=== PATIENT | male | born 1970 | race Caucasian/White ===

== ENCOUNTER 2024-12-30 14:10 | Emergency (ER) | payer MEDICAID, SELFPAY ==
[2024-12-30 14:11] VITALS: BP 140/84; PULSE 83; RESP 16; TEMP 36.6; O2SAT 98; BMI 33.7
--- NOTE | 2024-12-30 14:27 | CT_ITS ---
PROCEDURE: SPINE LUMBAR WITHOUT CONTRAST REASON FOR EXAM: Low back pain following a recent fall. Bilateral arm and leg numbness. TECHNIQUE: Lumbar spine CT without contrast. COMPARISON: None. FINDINGS: Vertebrae: Normal lumbar vertebral body heights. No evidence of fracture. Spondylosis. Alignment: No spondylolisthesis. L1-2: Mild degree of disc space narrowing. Anterior spondylosis. No significant stenosis seen. L2-3: Disc space is relatively well-maintained. Minimal anterior spondylosis. No evidence of fracture. No evidence of stenosis. L3-4: The disc space is relatively well maintained. Mild degree of bilateral neural foraminal stenosis due to hypertrophy of the facet joints. L4-5: The disc space is relatively well maintained. Moderate degree of bilateral neural foraminal stenosis due to hypertrophy of the facet joints as well as ligamentum flava. L5-S1: Disc space is relatively well-maintained. No significant abnormality is seen. Sacrum: Visualized upper sacrum and SI joints are unremarkable. Atherosclerotic plaque formation of the abdominal aorta. CT/Spine Lumbar without Contrast IMPRESSION: NO ACUTE LUMBAR FRACTURE. DEGENERATIVE CHANGES. One or more dose reduction techniques were used (e.g., Automated exposure contr ol, adjustment of the mA and/or kV according to patient size, use of iterative reconstruction technique). Reading Location: [facility]
--- NOTE | 2024-12-30 14:27 | CT_ITS ---
PROCEDURE: SPINE CERVICAL WITHOUT CONTRAS REASON FOR EXAM: Neck pain and upper extremity pain secondary to a fall. TECHNIQUE: Cervical spine CT without contrast. COMPARISON: None. FINDINGS: Alignment: Loss of the normal cervical lordosis most likely secondary to muscle spasm. Vertebrae: No acute fracture Soft Tissues: Unremarkable C1-2: Normal alignment. Dens appears intact. C2-3: Unremarkable C3-4: Unremarkable C4-5: Unremarkable C5-6: Unremarkable C6-7: Unremarkable C7-T1: Unremarkable CT/Spine Cervical without Contras IMPRESSION: Loss of the normal cervical lordosis most likely secondary to muscular spasm. No acute abnormality is seen. One or more dose reduction techniques were used (e.g., Automated exposure contr ol, adjustment of the mA and/or kV according to patient size, use of iterative reconstruction technique). Reading Location: [id number]
--- NOTE | 2024-12-30 14:27 | CT_ITS ---
EXAM: CT scan of the head without intravenous contrast administration. TECHNIQUE: Helical imaging of CT head was performed without IV contrast. One or more of the following dose reduction techniques were used: automated exposure control, adjustment of the mA and/or kV according to patient size, use of iterative reconstruction technique. CLINICAL HISTORY: Head injury due to a fall. COMPARISON: None. TECHNIQUE: Helical imaging of CT head was performed without IV contrast. One or more of the following dose reduction techniques were used: automated exposure control, adjustment of the mA and/or kV according to patient size, use of iterative reconstruction technique. FINDINGS: BRAIN PARENCHYMA: No evidence for acute hemorrhage or large territory infarct. EXTRA-AXIAL SPACES: No acute extra-axial fluid collection identified. Basal cisterns are patent. MIDLINE SHIFT: None. VENTRICLES: No evidence of hydrocephalus. SCALP SOFT TISSUES: No significant abnormality. CALVARIUM: No acute process. VISUALIZED PARANASAL SINUSES: No air-fluid levels. MASTOID AIR CELLS: Grossly clear. CT/Brain/Head without Contrast IMPRESSION: No evidence of acute intracranial abnormality. Reading Location: [id number]
--- NOTE | 2024-12-30 14:29 | ED.VIS.FALL ---
HPI HPI - Fall History of Present Illness Chief Complaint: Fall Informant: patient Occured/Mechanism Occurred: Today and Hours Usually ambulates: Without assistance Pain/Injury Pain Location: neck and back Quality of Pain: Sharp Current Severity: Moderate Maximum Severity: Moderate Associated Symptoms Associated Symptoms: Negative for Parasthesias, Weakness, Loss of function, Inability to ambulate or Loss of consciousness Narrative Narrative: 54-year-old male history of falls, degenerative disc disease, hypertension on aspirin but no other anticoagulants. Reportedly fell down 4 steps today. Does not believe he lost consciousness. Unsure if he hit his head. Complaining of low back pain. Was seen today in his neurologist office who called the emergency department and I need to be evaluated due to his low back pain. Patient denies any bowel or bladder incontinence. Prior similar symptoms: Yes Recent Illness/Hospitalization: No PFSH PFSH Allergy/AdvReac Type Severity Reaction Status Date / Time Environmental Allergies: Allergy Mild Other Verified 12/30/24 14:15 Uncoded (dust) metronidazole (From Flagyl) AdvReac Mild Nausea/Vom/ Verified 12/30/24 14:15 Diarrhea sulfamethoxazole (From AdvReac Mild Nausea/Vom/ Verified 12/30/24 14:15 Bactrim) Diarrhea trimethoprim (From Bactrim) AdvReac Mild Nausea/Vom/ Verified 12/30/24 14:15 Diarrhea Social History Smoking Status: Current every day smoker tobacco type: cigarettes ROS ROS ED ROS Narrative Denies recent illness. Complaining of neck and back pain post fall today. Constitutional Constitutional ED: Denies chills or fever(s) Eyes Eyes: Denies blurry vision ENT ENT ED: Denies ear pain Cardiovascular Cardiovascular: Denies chest pain Respiratory/Chest Respiratory/Chest: Denies cough or dyspnea Gastrointestinal Gastrointestinal: Denies abdominal pain Genitourinary Genitourinary ED: Denies dysuria Musculoskeletal Musculoskeletal: Reports back pain and neck pain; Denies arthralgias Integumentary Denies abscess Neurologic Neurologic: Denies headache(s) Psychiatric Psychiatric: Denies anxiety or depression Endocrine Endocrinology: Denies polydipsia Hematologic/Lymphatic Hematologic/Lymphatic: Denies easy bleeding Allergic/Immunologic Allergic/Immunologic ED: Denies mouth swelling EXAM Physical Exam Narrative Exam Narrative: 54-year-old male vital signs are stable afebrile. No acute distress. Pulse ox 90% on room air no signs hypoxia. H EENT exam pupils round reactive light. Moist mucous membranes. Missing dentition its old not new today. No problem opening closing his jaw. No facial or scalp trauma. No hematoma. No lacerations or bruising. Nontender. Neck diffuse C-spine tenderness. Trachea midline. Lungs clear to auscultation bilaterally. Heart regular rhythm rate about 80 no murmur. Chest wall ribs are nontender. Abdomen soft nontender. No bruising. Pelvic girdle intact. Back he has tenderness over his C-spine and lumbar lumbar spine. There is no ecchymosis or bruising or signs of trauma. Thoracic spine posterior ribs are nontender. Pelvic girdle intact. No shortening or rotation either hip. He has no pain over his upper or lower extremities. 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 He can raise his arms above his head. There is no deformity. Lower extremities have normal dorsi plantarflexion. He can flex extend the knees and hips. No deformity or shortening. No rotation. Neurologically is awake and alert no focal motor deficits. Const Vital Signs: 12/30/24 14:11 12/30/24 14:20 Temperature 97.9 F Temperature Source Temporal Pulse Rate 83 Respiratory Rate 16 Respiratory Effort Normal Respiratory Depth Normal Respiratory Pattern Normal Blood Pressure 140/84 H Blood Pressure Mean 102 Pulse Ox 98 Oxygen Delivery Method Room Air Room Air Positive well nourished and well developed; Negative for cachectic, contractures or unkempt General Appearance ED: well developed; Negative for unkempt, cachectic or contractures Nutritional Appearance: Negative for cachectic HEENT Reports normocephalic atraumatic; Negative for trauma, contusion, hematoma or tenderness Eyes PERRL and EOMs intact bilaterally General Eye ED: Negative for pale conjunctiva or scleral icterus Neck full ROM, no lymphadenopathy and supple Neck Narrative: C-spine tenderness. General: tenderness Chest Wall inspection of chest normal and palpation of chest normal Resp normal respiratory effort, no retractions and clear to auscultation bilaterally Auscultation: Negative for rales, rhonchi, wheezes or diminished lung sounds Cardio regular rate, regular rhythm, S1 normal heart sound, S2 normal heart sound and no murmurs Rate: Negative for bradycardia or tachycardic Rhythm: Negative for abnormal rhythm Bruits: Negative for other GI non-tender, non-distended and no masses Palpation: soft; Negative for guarding or rebound tenderness present Back/Spine no CVA tenderness General Back: Negative for CVA tenderness, erythema, ecchymosis, swelling or tenderness Cervical Spine: cervical spine tenderness Lumbar Spine / Lower Back: lumbar spinal tenderness Extremity Extremity Narrative: Nontender. No deformity. Normal range of motion. Neuro oriented x3, CN's II-XII intact bilaterally, moves all extremities, no focal motor deficits and no sensory deficits noted Justin Coma Scale: document GCS findings Spontaneous Obeys Commands Oriented 15 Sensorium / Orientation: alert, oriented to person, oriented to place and oriented to time; Negative for orientation impaired or confused Motor Exam: strength 5/5 throughout Psych mental status grossly normal and thought process normal Appearance: Negative for unkempt Mood & Affect: Negative for depressed, anxious or tearful Skin Lesions: no lesions Rashes: no rashes Trauma: Negative for abrasion or laceration Image ED - Body Diagram Man:  1. Tenderness of the C-spine. 2. Tender to his lumbar spine. MDM MDM MDM Narrative Medical decision making narrative: 54-year-old male reportedly fell down 4-5 steps at home today. Complaining of lower back pain. On exam he is posterior neck and back pain. CT of his head neck and lumbar spine to be obtained. He has no chest or abdominal pain and only needs his images. He has chronic illness Mrs. Plus a history of alcohol use but he denies drinking today or yesterday. Screening labs to be obtained. Patient has frequent falls and has for a year. He has fallen and broken his shoulder, torn his rotator cuff and broken his hip before. States his leg gives out and goes down. That is not new or different. Repeat exam at at around 4 to 6 PM. Patient doing well. We went over his CAT scan and test results. Will be discharged home. Tylenol and Motrin for pain. Follow-up with his primary care physician. Patient ambulated the hallway to go the bathroom prior to discharge without any difficulty. His neurologist had ordered blood test for him to get done and he was hoping we could add it to the blood work today so could be followed up as an outpatient. I will see if that can be done. History & Record Review Discussion w/independent historian: Patient Additional record(s) reviewed:: Prior inpatient record, Prior outpatient record, Prior ED visit and Prior labs Lab Data Attestation: I reviewed the patient's lab results. Lab results narrative: CBC unremarkable. White count of 7. H&H 14 and 42. Platelets 248. Electrolytes show gap 5. Normal BUN of 7 creatinine of 1. Glucose 112. Liver enzymes normal. Alcohol negative. CAT scans of the head, neck and chest showed chronic changes. But no acute abnormalities. No acute fractures. Labs: Laboratory Results - last 24 hr 12/30/24 14:42 WBC 7.3 RBC 4.61 Hgb 14.8 Hct 42.2 MCV 91.5 MCH 32.1 H MCHC 35.1 RDW Std Deviation 46.7 H RDW Coeff of Moreno 14.0 Plt Count 248 MPV 8.9 Immature Gran % (Auto) 0.400 Neut % (Auto) 54.9 Lymph % (Auto) 30.2 [place] % (Auto) 9.2 Eos % (Auto) 4.1 Baso % (Auto) 1.2 H Absolute Neuts (auto) 4.0 Absolute Lymphs (auto) 2.20 Nucleated RBC % 0 Sodium 138 Potassium 4.6 Chloride 105 Carbon Dioxide 28.0 Anion Gap 5 BUN 7 Creatinine 1.03 Estim Creat Clear Calc 95.40 Est GFR (MDRD) Af Amer 97 Est GFR (MDRD) Non-Af 80 BUN/Creatinine Ratio 6.8 L Glucose 112 H Calcium 9.0 Total Bilirubin 0.60 AST 36 ALT 34 Alkaline Phosphatase 69 Total Protein 7.3 Albumin 3.4 Globulin 3.9 Albumin/Globulin Ratio 0.9 Ethyl Alcohol < 3.0 Radiography Diagnostic Testing: Clinical Impression(s) from Imaging Studies Brain CT 12/30/24 14:27 IMPRESSION: No evidence of acute intracranial abnormality. Reading Location: [facility] Cervical Spine CT 12/30/24 14:27 IMPRESSION: Loss of the normal cervical lordosis most likely secondary to muscular spasm. No acute abnormality is seen. One or more dose reduction techniques were used (e.g., Automated exposure control, adjustment of the mA and/or kV according to patient size, use of iterative reconstruction technique). Reading Location: [id number] Lumbar Spine CT 12/30/24 14:27 IMPRESSION: NO ACUTE LUMBAR FRACTURE. DEGENERATIVE CHANGES. One or more dose reduction techniques were used (e.g., Automated exposure control, adjustment of the mA and/or kV according to patient size, use of iterative reconstruction technique). Reading Location: [id number] Discharge Plan Triage Chief Complaint: Fall ED Provider: Juan Antonio Freitas Dx/Rx/DC Orders Clinical Impression: Fall, Back pain, Acute strain of neck muscle Instructions: ED Back Pain (Acute or Chronic) Primary Care Provider: Charley Edmond,Out of Referrals: NOT,DEFINED [Non-Staff] - Activity Restrictions/Additional Instructions: Your CAT scan and labs look good. Motrin and Tylenol for pain. Hot shower, warm bath ice and massage to your back. Follow-up with your doctor as needed. Return if worse. Print Language: Georgian Disposition Disposition: Home, Self Care
[2024-12-30 14:54] LABS: Basophil# 0.09 X10^3/uL; Basophil% 1.2 % (0-1); Eosinophils% 4.1 % (0-5); Hematocrit 42.2 % (40-54); Hemoglobin 14.8 g/dL (13.0-16.5); Lymphocyte % 30.2 % (19-41); Mean Corp Hgb Conc 35.1 g/dL (32-36); Mean Corpuscular Hgb 32.1 pg (27.0-32.0); Mean Corpuscular Volume 91.5 fL (80-94); Mean Platelet Vol. 8.9 fl (6.2-12.0); Monocyte# 0.67 X10^3/uL; Monocyte% 9.2 % (0-10); NRBC Flagged by Analyzer 0 % (0-5); Neutrophil # 3.99 X10^3/uL (2.7-7.7); Neutrophil % 54.9 % (47-70); Platelet Count 248 K/mm3 (150-450); RBC Distribution Width SD 46.7 fl (35.1-43.9); Red Blood Count 4.61 M/mm3 (4.6-6.2); White Blood Count 7.3 K/mm3 (4.4-11.0)
[2024-12-30 15:11] LABS: Alcohol, Blood (Medical)-Serum < 3.0 mg/dL
[2024-12-30 15:17] LABS: ALB/GLOB Ratio 0.9 RATIO (0.9-2.4); AST(SGOT) 36 U/L (15-37); Alanine Aminotransfer ALT/SGPT 34 U/L (16-61); Albumin, Serum 3.4 g/dL (3.2-5.0); Alkaline Phosphatase 69 U/L (45-117); Anion Gap 5 (5-15); BUN 7 mg/dL (7-18); BUN/Creat Ratio 6.8 RATIO (10-20); Chloride 105 mmol/L (98-107); Creatinine, Serum 1.03 mg/dL (0.70-1.30); EST Glomerular Filtration Rate 80 mL/min (>60); Est Glom Filt Rate - Afr Amer 97 mL/min (>60); Globulin 3.9 g/dL (2.2-4.2); Glucose 112 mg/dL (74-106); Potassium 4.6 mmol/L (3.5-5.1); Protein, Total 7.3 g/dL (6.4-8.2); Sodium Level 138 mmol/L (136-145)
[2024-12-30 16:43] VITALS: BP 154/87; PULSE 81; RESP 16; TEMP 36.8; O2SAT 99
[2024-12-30 17:16] LABS: Vitamin B12 360 pg/mL (211-911)
[2024-12-30 17:19] LABS: T4 Total, Thyroxin 7.1 ug/dL (4.5-12.1)
[2024-12-30 17:29] LABS: Erythrocyte Sedimentation Rate 6 mm/hr (0-20)
[2024-12-30 17:53] LABS: Hemoglobin A1c 5.5 % (3.8-5.6)
[2025-01-04 11:08] LABS: ANTINUCLEAR ANTIBODIES DIRECT Negative (Negative); Methylmalonic Acid Bld 338 nmol/L (0-378)
[2025-01-05 07:08] LABS: Arsenic 7245 3 ug/L (0-9); Mercury, Blood 85324 < 1.0 ug/L (0.0-14.9); PROEL- Albumin 3.5 g/dL (2.9-4.4); PROEL- Alpha-1 Globulin 0.3 g/dL (0.0-0.4); PROEL- Alpha-2 Globulin 0.9 g/dL (0.4-1.0); PROEL- Beta Globulin 1.4 g/dL (0.7-1.3); PROEL- Gamma Globulin 0.8 g/dL (0.4-1.8); PROEL- Globulin, Total 3.5 g/dL (2.2-3.9); PROEL-M-Spike Not Observed g/dL (Not Observed)
== END 2024-12-30 16:44 | disposition home or self-care (01) ==
PROVIDERS: Emergency Provider Emergency Medicine; Referring Provider Emergency Medicine; Visit Provider Emergency Medicine
DX: S16.1XXA Strain of muscle, fascia and tendon at neck level, initial encounter (principal); Z79.82 Long term (current) use of aspirin; I10 Essential (primary) hypertension; M54.9 Dorsalgia, unspecified; F17.210 Nicotine dependence, cigarettes, uncomplicated; W19.XXXA Unspecified fall, initial encounter
CPT/HCPCS: 86225; 86235; 70450; 72125; 72131; 80053; 82077; 82175; 82607; 83036; 83655; 83825; 83921; 84165; 84436; 84443; 85025; 85652; 86038; 99283; A4216